=== PATIENT | male | born 1955 ===

== ENCOUNTER 2018-03-10 20:29 | Emergency (ER) | payer MEDICAID ==
[2018-03-10 20:39] VITALS: RESP 16
[2018-03-10 22:21] LABS: BASO # 0.1 K/uL (0.0-0.2); BASO % 0.7 % (0.0-2.0); EOS # 0.7 K/uL (0.0-0.7); EOS % 10.3 % (0.0-4.0); HEMOGLOBIN 13.9 g/dL (12.0-18.0); LYMPH # 1.9 K/uL (1.0-4.3); LYMPH % 27.6 % (20.0-40.0); MEAN CELL VOLUME 94.2 fl (80.0-94.0); MEAN CORPUSCULAR HEMOGLOBIN 32.1 pg (27.0-31.0); MEAN PLATELET VOLUME 7.9 fl (7.2-11.7); MONO # 0.6 K/uL (0.0-0.8); MONO % 8.4 % (0.0-10.0); NEUT # 3.7 K/uL (1.8-7.0); NRBC % 0.1 % (0.0-0.0); RBC 4.33 Mil/uL (4.40-5.90); RED CELL DISTRIBUTION WIDTH 13.7 % (11.5-14.5)
[2018-03-10 22:23] LABS: BLOOD UREA NITROGEN 13 mg/dl (9-20); CALCIUM 8.7 mg/dL (8.4-10.2); GFR AFRICAN-AMERICAN > 60; GFR NON-AFRICAN AMERICAN > 60
[2018-03-10 22:35] LABS: ACETAMINOPHEN < 10.0 ug/ml (10.0-30.0); SALICYLATE < 1.0 mg/dl
--- NOTE | 2018-03-10 22:41 | ED PDOC ---
HPI: Psych/Substance Abuse Time Seen by Provider: 03/10/18 20:30 Chief Complaint (Nursing): Anxiety Chief Complaint (Provider): Anxiety History Per: Patient History/Exam Limitations: no limitations Onset/Duration Of Symptoms: Days, Waxing/Waning Suicide/Self Injury Attempted (Context): None Additional Complaint(s): 62 y/o male with a PMHx of asthma presents to the ED for anxiousness and nervousness associated with palpitations and feeling emotional, onset yesterday. Patient is unwilling to provide further details. Patient smokes about 6 cigarettes a day and occasionally drinks. Patient reports last drink was yesterday. Denies suicidal ideation, homicidal ideation, fever, vomiting, and chest pain. PMD: Jose Leon Past Medical History Reviewed: Historical Data, Nursing Documentation, Vital Signs Vital Signs: Last Vital Signs Temp 98.0 F 03/10/18 20:32 Pulse 92 H 03/10/18 20:32 Resp 16 03/10/18 20:32 BP 127/79 03/10/18 20:32 Pulse Ox 96 03/10/18 20:32 - Medical History PMH: Asthma - Surgical History Surgical History: No Surg Hx - Family History Family History: States: Unknown Family Hx - Social History Current smoker - smoking cessation education provided: Yes (6 cigarettes per day ) Alcohol: Occasional Drugs: Denies - Immunization History Hx Tetanus Toxoid Vaccination: Yes Hx Influenza Vaccination: Yes Hx Pneumococcal Vaccination: No - Home Medications Home Medications: Ambulatory Orders Medication Instructions Recorded Acetaminophen with Codeine 1 tab PO Q6H PRN #10 tab 01/05/16 [Tylenol with Codeine No. 3 300 mg-30 mg] - Allergies Allergies/Adverse Reactions: Allergies Allergy/AdvReac Type Severity Reaction Status Date / Time No Known Allergies Allergy Verified 01/05/16 09:32 Review of Systems ROS Statement: Except As Marked, All Systems Reviewed And Found Negative Constitutional: Negative for: Fever Cardiovascular: Positive for: Palpitations. Negative for: Chest Pain Psych: Positive for: Anxiety, Other (nervous, emotional). Negative for: Suicidal ideation (or homicidal) Physical Exam - Reviewed Nursing Documentation Reviewed: Yes Vital Signs Reviewed: Yes - Physical Exam Appears: Positive for: No Acute Distress Head Exam: Positive for: ATRAUMATIC, NORMOCEPHALIC Skin: Positive for: Normal Color, Warm, Dry Eye Exam: Positive for: Normal appearance, EOMI, PERRL ENT: Positive for: Normal ENT Inspection Neck: Positive for: Normal, Painless ROM Cardiovascular/Chest: Positive for: Regular Rate, Rhythm. Negative for: Murmur Respiratory: Positive for: Normal Breath Sounds. Negative for: Respiratory Distress Gastrointestinal/Abdominal: Positive for: Normal Exam, Soft. Negative for: Tenderness Back: Positive for: Normal Inspection Extremity: Positive for: Normal ROM. Negative for: Pedal Edema, Deformity Neurologic/Psych: Positive for: Alert, Oriented (x3). Negative for: Motor/ Sensory Deficits - Laboratory Results Result Diagrams: 03/10/18 22:06 03/10/18 22:06 - ECG O2 Sat by Pulse Oximetry: 96 (RA) Pulse Ox Interpretation: Normal Medical Decision Making Medical Decision Making: Time: 2141 Plan: anxiety/palpitations -- Urine Drug Screen -- Urinalysis Time: 2205 Plan: -- Acetaminophen -- Alcohol Serum -- BMP -- Salicylate -- Troponin I -- CBC with differentials 0241 Labs reviewed and within normal limits. Patient is cleared by Dr. Goldsmith for anxiety. Patient is stable for discharge and instructed to follow up with Dr. Mc. Scribe Attestation: Documented by Yvan Temple acting as a scribe for Dr. Janiya Malone MD. Provider Scribe Attestation: All medical record entries made by the Scribe were at my direction and personally dictated by me. I have reviewed the chart and agree that the record accurately reflects my personal performance of the history, physical exam, medical decision making, and the department course for this patient. I have also personally directed, reviewed, and agree with the discharge instructions and disposition. Disposition - Clinical Impression Clinical Impression: Anxiety - Patient ED Disposition Is Patient to be Admitted: No Counseled Patient/Family Regarding: Studies Performed, Diagnosis, Need For Followup - Disposition Disposition: Routine/Home Disposition Time: 02:40 Condition: IMPROVED Additional Instructions: follow up with your primary doctor in 1-2 days return to the ED with any worsening or concerning symptoms Instructions: Anxiety, Adult (DC) Forms: [employer] (Stateless)
[2018-03-11 03:07] VITALS: BP 121/69; PULSE 65; TEMP 98.1
--- NOTE | 2018-03-11 10:24 | RAD ---
HISTORY: chest pain COMPARISON: No prior. FINDINGS: LUNGS: No focal airspace opacity. PLEURA: No significant pleural effusion identified, no pneumothorax apparent. CARDIOVASCULAR: Normal. OSSEOUS STRUCTURES: No significant abnormalities. VISUALIZED UPPER ABDOMEN: Upper abdomen is suboptimally evaluated. OTHER FINDINGS: None. IMPRESSION: No focal airspace opacity.
[2018-03-12 18:58] VITALS: O2SAT 96
== END 2018-03-11 03:06 | disposition home or self-care (01) ==
LOC: H.ER 20:29
DX: F41.9 Anxiety disorder, unspecified (principal)

== ENCOUNTER 2018-05-09 11:17 | Emergency (ER) | payer MEDICAID ==
[2018-05-09 11:23] VITALS: BMI 28.2
[2018-05-09 12:06] VITALS: BP 131/85; PULSE 74; RESP 18; TEMP 97.7; O2SAT 100
--- NOTE | 2018-05-09 12:26 | ED PDOC ---
Lower Extremity Pain/Injury Time Seen by Provider: 05/09/18 11:43 Chief Complaint (Nursing): Lower Extremity Problem/Injury Chief Complaint (Provider): Right Knee Pain History Per: Patient History/Exam Limitations: no limitations Onset/Duration Of Symptoms: Days (x3) Current Symptoms Are (Timing): Still Present Pain Scale Rating Of: 10 Additional Complaint(s): 62 year old male presents to the ED for evaluation of atraumatic, 10 "pulling " pain to his right knee onset for three days. Patient reports that secondary to the pain, he is unable to stand or bear weight, but cannot feel it when sitting. He states he has been treating it with Ibuprofen 800mg, last dose at 0600 this morning, but persistence of symptoms prompted his visit. Of note, he says he works on his feet a lot. Otherwise, (-) shortness of breath, (-) chest pain, (-) cough, (-) hx of knee injury/surgery, (-) hx of blood clots, (-) recent travel/prolonged immobility (-) fever/chills. PMD: Alexandro Past Medical History Reviewed: Historical Data, Nursing Documentation, Vital Signs Vital Signs: Last Vital Signs Temp 97.7 F 05/09/18 12:05 Pulse 74 05/09/18 12:05 Resp 18 05/09/18 12:05 BP 131/85 05/09/18 12:05 Pulse Ox 100 05/09/18 12:05 - Medical History PMH: Asthma - Surgical History Surgical History: No Surg Hx - Family History Family History: States: Unknown Family Hx - Social History Current smoker - smoking cessation education provided: Yes (5-6 cigs per day) Alcohol: Social Drugs: Denies - Home Medications Home Medications: Ambulatory Orders Medication Instructions Recorded Acetaminophen with Codeine 1 tab PO Q6H PRN #10 tab 01/05/16 [Tylenol with Codeine No. 3 300 mg-30 mg] Acetaminophen [Acetaminophen 8 650 mg PO Q8 PRN #21 tablet.er 05/09/18 Hour] Meloxicam [Mobic] 15 mg PO DAILY PRN #10 tab 05/09/18 - Allergies Allergies/Adverse Reactions: Allergies Allergy/AdvReac Type Severity Reaction Status Date / Time No Known Allergies Allergy Verified 05/09/18 12:05 Review of Systems ROS Statement: Except As Marked, All Systems Reviewed And Found Negative Cardiovascular: Negative for: Chest Pain Respiratory: Negative for: Cough, Shortness of Breath Musculoskeletal: Positive for: Leg Pain (right knee pain, atraumatic) Physical Exam - Reviewed Nursing Documentation Reviewed: Yes Vital Signs Reviewed: Yes - Physical Exam Comments: GENERAL APPEARANCE: Patient is awake, alert, oriented x 3, in no acute distress. Resting comfortably. SKIN: Warm, dry; (-) cyanosis. NECK: Supple, FROM ENT: Mucus membranes moist. Airway patent, (-) stridor. RIGHT LOWER EXTREMITY: Knee: (+) tenderness posterior and lateral knee, (+) decreased flexion secondary to pain otherwise ROM intact (-) instability on valgus or varus stress. (-) anterior and posterior drawer sign (-) effusion, (- ) erythema, (-) warmth. Remainder of LE: (-) calf tenderness, (-) palpable cord , (-) tenderness, (+) full ROM throughout. CHEST AND RESPIRATORY: (-) rales, (-) rhonchi, (-) wheezes; breath sounds equal bilaterally. Respirations even and nonlabored. HEART AND CARDIOVASCULAR: (-) irregularity;(+) distal pulses. NEUROLOGIC: (+) distal sensation. - ECG O2 Sat by Pulse Oximetry: 100 (RA) Pulse Ox Interpretation: Normal Medical Decision Making Medical Decision Making: Time: 1222 Initial Impression: acute knee pain, probable OA Initial Plan: --Right knee XR --Tylenol 650 mg PO --Re-evaluation XR Reviewed: Date of service: 05/09/2018 PROCEDURE: Right Knee Radiographs. HISTORY: joint pain COMPARISON: None. FINDINGS: BONES: No acute fracture or destructive bony lesion identified. JOINTS: Limited joint space narrowing of all 3 compartments is compatible with degenerative joint disease. No marked osteophyte development or cortical sclerosis however. JOINT EFFUSION: None. OTHER FINDINGS: None. IMPRESSION: Limited degenerative joint disease, tricompartmental. No acute fracture or dislocation identified. 1400 Patient provided with crutches and instructed on crutch walking by ED RN. Brayan bandage applied to knee by ED RN. Placement and application verified by Tito EPPERSON. NV intact after placement. RICE encouraged. On re-evaluation, patient reports improvement of symptoms. Patient remains AAOx3 , in no acute distress. On exam, neck is supple, lungs CTA, cardiac RRR, neuro exam shows no focal findings. VSS, stable for discharge. Diagnostic results d/w the patient in great detail. Dx of acute knee pain, osteoarthritis d/w the patient. Based on history, exam and diagnostic results plan will be for discharge and outpatient ortho follow up. Advised to follow up with primary care physician/ ortho in 1-2 days without fail. Advised to take medication as prescribed. Return to the emergency room at any time for any new or worsening symptoms. Patient states he fully agrees with and understands discharge instructions. States that he agrees with the plan and disposition. Verbalized and repeated discharge instructions and plan. I have given the patient opportunity to ask any additional questions. Scribe Attestation: Documented by Deepti Márquez, acting as a scribe for Anastasia Francis PA-C Provider Scribe Attestation: All medical record entries made by the Scribe were at my direction and personally dictated by me. I have reviewed the chart and agree that the record accurately reflects my personal performance of the history, physical exam, medical decision making, and the department course for this patient. I have also personally directed, reviewed, and agree with the discharge instructions and disposition. Disposition - Clinical Impression Clinical Impression: Acute pain of right knee, Osteoarthritis - Patient ED Disposition Is Patient to be Admitted: No Counseled Patient/Family Regarding: Studies Performed, Diagnosis, Need For Followup, Rx Given - Disposition Referrals: Jermain Salgado MD [Staff Provider] - Disposition: Routine/Home Disposition Time: 14:08 Condition: STABLE Additional Instructions: The emergency medical care you received today was directed at your acute symptoms. If you were prescribed any medication, please fill it and take as directed. It may take several days for your symptoms to resolve. Return to the Emergency Department if your symptoms worsen, do not improve, or if you have any other problems. Please contact your doctor in 2 days for re-evaluation and follow up / or call one of the physicians/clinics you have been referred to that are listed on the Patient Visit Information form that is included in your discharge packet. Bring any paperwork you were given at discharge with you along with any medications you are taking to your follow up visit. Our treatment cannot replace ongoing medical care by a primary care provider (PCP) outside of the emergency department. REST ICE COMPRESS (BANDAGE) ELEVATE Prescriptions: Acetaminophen [Acetaminophen 8 Hour] 650 mg PO Q8 PRN #21 tablet.er PRN Reason: Pain, Moderate (4-7) Meloxicam [Mobic] 15 mg PO DAILY PRN #10 tab PRN Reason: Pain, Moderate (4-7) Instructions: Osteoarthritis (DC), Knee Sprain (DC), Knee Pain Forms: [facility] ([place]ander) Print Language: HEBREW - POA Present On Arrival: None
--- NOTE | 2018-05-09 16:11 | RAD ---
Date of service: 05/09/2018 PROCEDURE: Right Knee Radiographs. HISTORY: joint pain COMPARISON: None. FINDINGS: BONES: No acute fracture or destructive bony lesion identified. JOINTS: Limited joint space narrowing of all 3 compartments is compatible with degenerative joint disease. No marked osteophyte development or cortical sclerosis however. JOINT EFFUSION: None. OTHER FINDINGS: None. IMPRESSION: Limited degenerative joint disease, tricompartmental. No acute fracture or dislocation identified.
== END 2018-05-09 14:26 | disposition home or self-care (01) ==
LOC: H.ER 11:17
DX: M17.11 Unilateral primary osteoarthritis, right knee (principal)